=== PATIENT | female | born 1975 | race Caucasian/White ===

== ENCOUNTER → 2018-01-22 08:19 | Outpatient (CLI) | payer OTHER, SELFPAY ==
[2018-01-22 12:11] LABS: Absolute Lymphocyte Count 0.75 X10^3/ul (0.83-4.51); Absolute Neutrophil Count 1.2 X10^3/uL (2.0-7.7); Basophil# 0.01 X10^3/uL; Basophil% 0.5 % (0-1); Eosinophil# 0.04 X10^3/uL; Eosinophils% 1.8 % (0-5); Hematocrit 30.9 % (37-47); Hemoglobin 8.9 g/dl (12.0-15.0); Immature Platelet Fraction 5.5 % (1.0-7.9); Lymphocyte # 0.75 X10^3/ul (4.0); Lymphocyte % 34.1 % (19-41); Mean Corp Hgb Conc 28.8 g/gl (32-36); Mean Corpuscular Hgb 23.3 pg (27.0-32.0); Mean Corpuscular Volume 80.9 fL (81-99); Mean Platelet Vol. 10.6 fl (6.2-12.0); Monocyte# 0.21 X10^3/uL; Monocyte% 9.5 % (0-10); Neutrophil # 1.19 X10^3/uL (2.7-7.7); Neutrophil % 54.1 % (47-70); Platelet Count 111 K/mm3 (150-450); RBC Distribution Width CV 16.3 % (11.6-14.6); RBC Distribution Width SD 48.4 fl (35.1-43.9); RET-HE 20.5 pg (30-35); Red Blood Count 3.82 M/mm3 (4.2-5.4); Reticulocyte Count 0.88 % (0.5-1.5); White Blood Count 2.2 K/mm3 (4.4-11.0)
[2018-01-22 12:13] LABS: Differential Indicated SCAN CRITERIA MET; POSITIVE COUNT NO; POSITIVE DIFFERENTIAL NO; POSITIVE MORPHOLOGY YES
[2018-01-22 12:33] LABS: ALB/GLOB Ratio 1.1 RATIO (0.9-2.4); AST(SGOT) 32 U/L (15-37); Alanine Aminotransfer ALT/SGPT 44 U/L (13-56); Albumin, Serum 3.7 g/dL (3.2-5.0); Alkaline Phosphatase 64 U/L (45-117); Anion Gap 9 (5-15); BUN 21 mg/dL (7-18); BUN/Creat Ratio 20.8 RATIO (10-20); Calcium,Total 8.6 mg/dL (8.5-10.1); Chloride 108 mmol/L (98-107); Cholesterol 92 mg/dL (200); Creatinine, Serum 1.01 mg/dL (0.55-1.02); EST Glomerular Filtration Rate 63 mL/min (>60); Est Glom Filt Rate - Afr Amer 77 mL/min (>60); Ferritin 2 ng/mL (8-252); Globulin 3.4 g/dL (2.2-4.2); Glucose 92 mg/dL (74-106); High Density Lipoprotein 61 mg/dL; Potassium 4.1 mmol/L (3.5-5.1); Protein, Total 7.1 g/dL (6.4-8.2); Sodium Level 142 mmol/L (136-145); Triglycerides 29 mg/dL; Very Low Density Lipoprotein 6 mg/dL (5-40)
[2018-01-22 12:53] LABS: Red Cell Morphology NORM C+C NORMAL (NORM C&C)
== END ==
PROVIDERS: Family Provider Family Medicine; PCP Family Medicine; Visit Provider Family Medicine
DX: Z00.00 Encounter for general adult medical examination without abnormal findings (principal); D64.9 Anemia, unspecified
CPT/HCPCS: 36415; 80053; 80061; 82728; 85025; 85045

== ENCOUNTER → 2018-02-05 15:01 | Outpatient (CLI) | payer OTHER, SELFPAY ==
[2018-02-07 20:07] LABS: Endomysial Antibody IgA Negative (Negative)
[2018-02-08 13:59] LABS: Immunoglobulin A 114 mg/dL (87-352); t-Transglutaminase IgA <2 U/mL (0-3)
== END ==
PROVIDERS: Family Provider Family Medicine; PCP Family Medicine; Visit Provider Family Medicine
DX: D64.9 Anemia, unspecified (principal)
CPT/HCPCS: 36415; 82784; 83516; 86255

== ENCOUNTER → 2018-04-01 08:39 | Outpatient (CLI) | payer OTHER, SELFPAY ==
[2018-04-01 12:06] LABS: Absolute Lymphocyte Count 1.14 X10^3/ul (0.83-4.51); Absolute Neutrophil Count 1.6 X10^3/uL (2.0-7.7); Basophil# 0.01 X10^3/uL; Basophil% 0.3 % (0-1); Eosinophil# 0.04 X10^3/uL; Eosinophils% 1.3 % (0-5); Hematocrit 34.2 % (37-47); Hemoglobin 10.1 g/dl (12.0-15.0); Lymphocyte # 1.14 X10^3/ul (4.0); Lymphocyte % 36.5 % (19-41); Mean Corp Hgb Conc 29.5 g/gl (32-36); Mean Corpuscular Hgb 24.8 pg (27.0-32.0); Mean Corpuscular Volume 83.8 fL (81-99); Mean Platelet Vol. 10.8 fl (6.2-12.0); Monocyte# 0.29 X10^3/uL; Monocyte% 9.3 % (0-10); Neutrophil # 1.64 X10^3/uL (2.7-7.7); Neutrophil % 52.6 % (47-70); Platelet Count 96 K/mm3 (150-450); RBC Distribution Width CV 17.9 % (11.6-14.6); RBC Distribution Width SD 55.4 fl (35.1-43.9); Red Blood Count 4.08 M/mm3 (4.2-5.4); White Blood Count 3.1 K/mm3 (4.4-11.0)
[2018-04-01 12:07] LABS: Differential Indicated SCAN CRITERIA MET; POSITIVE COUNT NO; POSITIVE DIFFERENTIAL NO; POSITIVE MORPHOLOGY YES
[2018-04-01 12:13] LABS: Ferritin 3 ng/mL (8-252)
== END ==
PROVIDERS: Family Provider Family Medicine; PCP Family Medicine; Visit Provider Family Medicine
DX: D64.9 Anemia, unspecified (principal); D69.3 Immune thrombocytopenic purpura
CPT/HCPCS: 36415; 82728; 85025

== ENCOUNTER → 2019-01-21 | Outpatient (CLI) | payer OTHER, SELFPAY ==
[2019-01-21 12:49] LABS: Anion Gap 8 (5-15); BUN 17 mg/dL (7-18); BUN/Creat Ratio 20.5 RATIO (10-20); Calcium,Total 8.6 mg/dL (8.5-10.1); Chloride 110 mmol/L (98-107); Cholesterol 91 mg/dL (200); Creatinine, Serum 0.83 mg/dL (0.55-1.02); EST Glomerular Filtration Rate 79 mL/min (>60); Est Glom Filt Rate - Afr Amer 96 mL/min (>60); Glucose 84 mg/dL (74-106); High Density Lipoprotein 63 mg/dL; Potassium 4.4 mmol/L (3.5-5.1); Sodium Level 143 mmol/L (136-145); Triglycerides 39 mg/dL; Very Low Density Lipoprotein 8 mg/dL (5-40)
== END | disposition home or self-care (01) ==
LOC: BFHLAB 08:34
PROVIDERS: Family Provider Family Medicine; PCP Family Medicine; Visit Provider Family Medicine
DX: Z00.00 Encounter for general adult medical examination without abnormal findings (principal)
CPT/HCPCS: 36415; 80048; 80061

== ENCOUNTER → 2019-05-01 11:51 | Outpatient (CLI) | payer OTHER, SELFPAY ==
[2019-05-01 11:54] LABS: Bacteria 0 SEEN /hpf (None Seen); Mucous, Urine 0 SEEN /hpf (<or=2+)
[2019-05-01 16:15] LABS: Color, Urine Yellow (Yellow); Glucose, Dipstick Normal (Normal); Ketone-Dipstick Negative (Negative); Leukocyte Esterase-Dipstick 100 /ul (Negative); Nitrite-Dipstick Negative (Negative); Occult Blood-Urine 50 /ul (Negative); Protein-Dipstick Negative (Negative); Urine Bilirubin Dipstick Negative (Negative); Urine Clarity Clear (Clear); Urine Urobilinogen Normal (Normal); Urine pH 6.5 (5.0 - 8.0)
[2019-05-01 17:14] LABS: Red Blood Cells-Urine 0-5 SEEN /hpf (0-5); Squamous Epithelial Cells - UA 0-5 SEEN /hpf (5-10); White Blood Cells 5-10 SEEN /hpf (0-5)
== END ==
PROVIDERS: Family Provider Family Medicine; PCP Family Medicine; Visit Provider Family Medicine
DX: R30.0 Dysuria (principal)
CPT/HCPCS: 81001; 87077; 87086; 87088; 87186

== ENCOUNTER 2021-07-31 10:01 | Outpatient (CLI) | payer OTHER, SELFPAY ==
[2021-07-31 15:22] LABS: Absolute Lymphocyte Count 0.89 X10^3/uL (0.83-4.51); Absolute Neutrophil Count 1.8 X10^3/uL (2.0-7.7); Basophil# 0.02 X10^3/uL; Basophil% 0.6 % (0-1); Eosinophil# 0.04 X10^3/uL; Eosinophils% 1.2 % (0-5); Hematocrit 35.8 % (37-47); Hemoglobin 11.3 g/dL (12.0-15.0); Lymphocyte # 0.89 X10^3/ul (0.83-4.51); Lymphocyte % 27.6 % (19-41); Mean Corp Hgb Conc 31.6 g/dL (32-36); Mean Corpuscular Hgb 28.9 pg (27.0-32.0); Mean Corpuscular Volume 91.6 fL (81-99); Mean Platelet Vol. 12.1 fl (6.2-12.0); Monocyte# 0.42 X10^3/uL; NRBC Flagged by Analyzer 0 % (0-5); Neutrophil # 1.84 X10^3/uL (2.7-7.7); Neutrophil % 57.3 % (47-70); Platelet Count 143 K/mm3 (150-450); RBC Distribution Width CV 12.8 % (11.6-14.6); RBC Distribution Width SD 41.8 fl (35.1-43.9); Red Blood Count 3.91 M/mm3 (4.2-5.4); White Blood Count 3.2 K/mm3 (4.4-11.0)
[2021-07-31 15:39] LABS: Vitamin D,25 Hydroxy 35.3 ng/mL
[2021-07-31 15:50] LABS: ALB/GLOB Ratio 1.1 RATIO (0.9-2.4); AST(SGOT) 16 U/L (15-37); Alanine Aminotransfer ALT/SGPT 16 U/L (13-56); Albumin, Serum 3.8 g/dL (3.2-5.0); Alkaline Phosphatase 53 U/L (45-117); Anion Gap 5 (5-15); BUN 20 mg/dL (7-18); BUN/Creat Ratio 22.7 RATIO (10-20); Calcium,Total 9.3 mg/dL (8.5-10.1); Chloride 108 mmol/L (98-107); Creatinine, Serum 0.88 mg/dL (0.55-1.02); EST Glomerular Filtration Rate 73 mL/min (>60); Est Glom Filt Rate - Afr Amer 88 mL/min (>60); Ferritin 5 ng/mL (8-252); Globulin 3.6 g/dL (2.2-4.2); Glucose 91 mg/dL (74-106); Iron 49 ug/dL (50-170); Iron Binding Capacity,Total 378 ug/dL (250-450); Potassium 4.3 mmol/L (3.5-5.1); Protein, Total 7.4 g/dL (6.4-8.2); Sodium Level 138 mmol/L (136-145); T4 Free Direct 0.91 ng/dL (0.76-1.46); Thyroid Stim Hormone (TSH) 0.38 uIU/mL (0.358-3.74)
== END 2021-07-31 23:59 | disposition home or self-care (01) ==
LOC: MFPLAB 10:04
PROVIDERS: PCP Family Medicine; Visit Provider Family Medicine
DX: D50.9 Iron deficiency anemia, unspecified (principal); E55.9 Vitamin D deficiency, unspecified
CPT/HCPCS: 36415; 80053; 82306; 82728; 83540; 83550; 84439; 84443; 85025

== ENCOUNTER → 2022-02-07 | Outpatient (CLI) | payer OTHER, SELFPAY | END | disposition home or self-care (01) | LOC: LABSPEC 16:01 | PROVIDERS: PCP Family Medicine; Referring Provider Family Medicine; Visit Provider Nurse Practitioner Family | DX: N39.0 Urinary tract infection, site not specified (principal) | CPT/HCPCS: 87086; 87088 ==

== ENCOUNTER → 2022-07-26 | Outpatient (CLI) | payer OTHER, SELFPAY | END | disposition home or self-care (01) | PROVIDERS: PCP Family Medicine; Visit Provider Nurse Practitioner Family | DX: N39.0 Urinary tract infection, site not specified (principal) | CPT/HCPCS: 87077; 87086; 87088; 87186 ==

== ENCOUNTER → 2022-10-04 | Outpatient (CLI) | payer OTHER, SELFPAY ==
[2022-10-04 18:09] LABS: Absolute Lymphocyte Count 0.57 X10^3/uL (0.83-4.51); Absolute Neutrophil Count 5.9 X10^3/uL (2.0-7.7); Basophil# 0.01 X10^3/uL; Basophil% 0.1 % (0-1); Hematocrit 32.9 % (37-47); Hemoglobin 10.3 g/dL (12.0-15.0); Lymphocyte # 0.57 X10^3/ul (0.83-4.51); Lymphocyte % 7.7 % (19-41); Mean Corp Hgb Conc 31.3 g/dL (32-36); Mean Corpuscular Hgb 30.1 pg (27.0-32.0); Mean Corpuscular Volume 96.2 fL (81-99); Mean Platelet Vol. 12.3 fl (6.2-12.0); Monocyte# 0.93 X10^3/uL; Monocyte% 12.5 % (0-10); NRBC Flagged by Analyzer 0 % (0-5); Neutrophil # 5.88 X10^3/uL (2.7-7.7); POSITIVE DIFFERENTIAL YES; Platelet Count 130 K/mm3 (150-450); RBC Distribution Width CV 12.5 % (11.6-14.6); Red Blood Count 3.42 M/mm3 (4.2-5.4); White Blood Count 7.4 K/mm3 (4.4-11.0)
[2022-10-04 18:59] LABS: AST(SGOT) 19 U/L (15-37); Alanine Aminotransfer ALT/SGPT 18 U/L (13-56); Albumin, Serum 3.3 g/dL (3.2-5.0); Alkaline Phosphatase 52 U/L (45-117); Anion Gap 7 (5-15); BUN 16 mg/dL (7-18); Calcium,Total 8.4 mg/dL (8.5-10.1); Chloride 103 mmol/L (98-107); Creatinine, Serum 0.84 mg/dL (0.55-1.02); EST Glomerular Filtration Rate 76 mL/min (>60); Est Glom Filt Rate - Afr Amer 92 mL/min (>60); Globulin 3.2 g/dL (2.2-4.2); Glucose 133 mg/dL (74-106); Potassium 4.6 mmol/L (3.5-5.1); Protein, Total 6.5 g/dL (6.4-8.2); Sodium Level 134 mmol/L (136-145)
[2022-10-04 19:02] LABS: Differential Indicated SCAN CRITERIA MET
[2022-10-04 19:28] LABS: Anisocytosis RARE; Macrocytosis RARE; Platelet Estimate SLT DEC (ADEQ); Red Cell Morphology N CHROM NORMAL (NORM C&C)
== END | disposition home or self-care (01) ==
PROVIDERS: PCP Family Medicine; Visit Provider Nurse Practitioner Family
DX: R30.0 Dysuria (principal); R50.9 Fever, unspecified
CPT/HCPCS: 36415; 80053; 85025; 87086; 87088; 87186

== ENCOUNTER → 2022-10-17 | Outpatient (CLI) | payer OTHER, SELFPAY ==
--- NOTE | 2022-10-17 15:58 | US_ITS ---
EXAM: US RETROPERITONEAL LIMITED, RENAL CLINICAL INDICATION: UTI TECHNIQUE: Limited grayscale and color Doppler sonographic evaluation of the retroperitoneum was performed. COMPARISON: Previous CT of 07/15/2015. FINDINGS: RIGHT KIDNEY: Right kidney remains small/atrophic; the right kidney measures 8.0 x 3.2 x 3.2 cm in diameter. There is mild diffuse right renal cortical thinning. 2.6 cm lobulated anechoic/ simple cyst noted at the upper pole of the right kidney. No right-sided hydronephrosis or solid renal mass. LEFT KIDNEY: Left kidney remains normal in size, measuring 10.5 x 4.7 x 5.7 cm in diameter. Normal renal cortical thickness. No hydronephrosis. No shadowing calculus. No focal lesion. No perinephric collection is demonstrated. URINARY BLADDER: Prevoid volume measures 79.7 cc. Bladder wall thickness is upper normal measuring 3 mm in thickness. Bilateral ureteral jets are noted. Postvoiding bladder volume measures 10 cc. No cellular debris is seen within the urinary bladder. US/Kidney and Bladder IMPRESSION: Chronic atrophy of the right kidney. Normal left kidney. Small postvoiding residual within the urinary bladder, measuring 10 cc. No hydronephrosis. Electronically Signed: Mk Slaughter MD at 5:26 EDT ,
== END | disposition home or self-care (01) ==
PROVIDERS: PCP Family Medicine; Referring Provider Urology; Visit Provider Urology
DX: N39.0 Urinary tract infection, site not specified (principal)
CPT/HCPCS: 76770

== ENCOUNTER 2022-11-15 10:57 | Day surgery (SDC) | payer OTHER, SELFPAY ==
[2022-11-09 13:31] LABS: Hematocrit 34.1 % (37-47); Hemoglobin 10.2 g/dL (12.0-15.0); Mean Corp Hgb Conc 29.9 g/dL (32-36); Mean Corpuscular Hgb 27.2 pg (27.0-32.0); Mean Corpuscular Volume 90.9 fL (81-99); Mean Platelet Vol. 11.6 fl (6.2-12.0); Platelet Count 171 K/mm3 (150-450); RBC Distribution Width CV 12.3 % (11.6-14.6); RBC Distribution Width SD 40.7 fl (35.1-43.9); Red Blood Count 3.75 M/mm3 (4.2-5.4); White Blood Count 3.2 K/mm3 (4.4-11.0)
--- NOTE | 2022-11-14 17:24 | HP.PCM_ITS ---
History and Physical Date of Admission: 11/15/22 Pre-Op History and Physical ? HPI: The patient is a 47 year old female presenting for pre-operative visit. She is scheduled for hysteroscopy, elisa endometrial ablation, for aub on 11/15/22. Procedure discussed along with risks, benefits and complications. Other alternatives discussed for management. Consent form signed? Yes. ? ? PAST MEDICAL HISTORY PAST MEDICAL HISTORY Diagnosis Date ? Anemia, unspecified 03/16/2011 ? Chronic cholecystitis with calculus 06/06/2015 ? Congenital abnormality ureter ? ? DOUBLE URETERS BOTH SIDES ? Double ureter ? ? Dysmenorrhea ? ? History of recurrent UTI (urinary tract infection) ? ? Ichthyosis ? ? of hands, dishydrosis ? ITP (idiopathic thrombocytopenic purpura) ? ? worse with ? Mastitis 01/20/2013 ? Other malaise and fatigue 2006 ? Resolved ? Pancytopenia (HCC) ? ? s/p bone marrow bx, Masci 2006 ? Snoring ? ? Thrombocytopenia, unspecified (HCC) ? ? Thrombocytopenia Immune mediated. ? Umbilical hernia without obstruction or gangrene 06/06/2015 ? Ventral hernia without obstruction or gangrene 06/06/2015 ? ? PAST SURGICAL HISTORY PAST SURGICAL HISTORY Procedure Laterality Date ? BONE MARROW BIOPSY NEEDLE (MM) ? 03/25/2007 ? negative ? BREAST BIOPSY Right 2000 ? RIGHT fibroadenoma ? DELIVERY ONLY ? 2003,2006,2007, 2009 ? , low cervical ? COLONOSCOPY FLX DX W/COLLJ SPEC WHEN PFRMD ? 05/14/2018 ? Colonoscopy ? DILATION & CURETTAGE DX&/THER NONOBSTETRIC ? 07/09/2006 ? Dilation & curettage ? EGD TRANSORAL BIOPSY SINGLE/MULTIPLE ? 07-14-15 ? ERCP DX COLLECTION SPECIMEN BRUSHING/WASHING ? 07/16/15 ? Cholangiopancreatography (ERCP)in pt [facility] ? ESOPHAGOGASTRODUODENOSCOPY TRANSORAL DIAGNOSTIC ? 05/14/2018 ? EGD ? KIDNEY SURGERY HX ? 1975 age 1 ? 1/2 kidney removed due to infection and dying tissue ? LAPS ABD PRTM&OMENTUM DX W/WO SPEC BR/WA SPX ? 07-15-15 ? LAPS SURG CHOLECYSTECTOMY W/CHOLANGIOGRAPHY ? 07-07-15 ? LIG/TRNSXJ FLP TUBE ABDL/VAG APPR UNI/BI ? 2010 ? Tubal ligation ? PAST SURGICAL HISTORY OF Right 1975 ? RIGHT KIDNEY 1/2 REMOVED ? PAST SURGICAL HISTORY OF Right 1974 ? ONE URETER OF DOUBLE URETER REMOVED RIGHT ? REPAIR FIRST ABDOMINAL WALL HERNIA ? 07-07-15 ? AND UMBILICAL HERNIA ? ? ? CURRENT MEDICATIONS Current Outpatient Medications Medication Sig Dispense Refill ? ascorbic acid (VITAMIN C ORAL) Take by mouth. ? ? ? miSOPROStol (CYTOTEC) 200 mcg tablet Take two tablets PO night before procedure and two tablets morning of procedure (Patient not taking: Reported on 03/19/2022) 4 tablet 0 ? BIOTIN ORAL Take 1 tablet by mouth once daily. (Patient not taking: Reported on 03/19/2022) ? ? ? cholecalciferol, vitamin D3, (VITAMIN D3 ORAL) Take 1 tablet by mouth once daily. (Patient not taking: Reported on 03/19/2022) ? ? ? No current facility-administered medications for this visit. ? ? ALLERGIES: Ancef [Cefazolin Sodium] ? PERSONAL HISTORY: SOCIAL HISTORY Social History ? Tobacco Use ? Smoking status: Never ? Smokeless tobacco: Never Vaping Use ? Vaping Use: Never used Substance Use Topics ? Alcohol use: No ? Drug use: No ? FAMILY HISTORY: FAMILY HISTORY FAMILY HISTORY Problem Relation Age of Onset ? None Mother ? ? Hypertension Father ? ? Diabetes Father ? ? other (ITP) Father ? ? Cancer Paternal Grandmother ? ? LUNG (SMOKER) ? Heart Paternal Grandfather ? ? [place] ? other (Other) Paternal Grandfather ? ? no breast or ovarian cancer ? ? REVIEW OF SYMPTOMS: negative except as noted above PHYSICAL EXAMINATION: ? VITALS: Blood pressure 86/52, weight 117 lb (53.1 kg), last menstrual period 09/23/2022. ? GENERAL: The patient is well nourished, well hydrated in no acute distress. , The patient is oriented to time, place, and person. NECK: full range of motion LUNGS: Clear to auscultation bilaterally. no wheezes, rhonchi or rales HEART: Regular rate and rhythm, Normal heart sounds, and No murmurs or gallops ? IMPRESSION: 47yo with AUB ? PLAN: Hysteroscopy, Elisa Endometrial Ablation ? Pt has been counseled on risks/benefits and alternatives of surgery including but not limited to anesthesia, bleeding, infection, uterine perforation with subsequent injury to pelvic structures including bowel, bladder, ureters and vessels. Pt wishes to proceed with surgery at this time. ? Pre and post op instructions reviewed. Discussed possible failure of EM ablation. ? I have reviewed and updated past medical and surgical history, medications and allergies Cathy Ortega MD
[2022-11-15 11:13] VITALS: BP 117/64; PULSE 65; RESP 16; TEMP 36.4; O2SAT 100; BMI 19.5
[2022-11-15 11:26] LABS: Internal QC Validated? YES +Cl - CLEAR BKGD; Pregnancy, Urine Negative Negative
[2022-11-15] MEDS: Lactated Ringers 1,000 ML 15 ML IV (11:27)
--- NOTE | 2022-11-15 13:36 | DCINST_ITS ---
Discharge Instructions Procedure D&C Diet Discharge Diet: No restrictions Activity May resume sexual activity in: 1 week Dressing / Incision Call your doctor if you observe: Fever of 101 or Higher, Inability to urinate, Using more than 1 pad per hour and Uncontrolled pain Follow Up Care Please Follow Up With: Cathy Jerez MD When: 1-2 weeks post OP if you need an appointment please call [phone] Test Results: Test results from this visit will be discussed in further detail at your follow- up appointment, if applicable. Discharge Plan Admission Attending Provider: Cathy Jerez Primary Care Provider: Amos Fletcher Discharge Orders/Prescriptions Prescriptions: No Action ascorbate calcium (vitamin C) 500 mg tablet 500 mg PO DAILY Referrals / Follow Up: Amos Fletcher MD [Primary Care Provider] - Disposition Disposition (needs filled in before D/C Order can be placed): Home, Self Care
--- NOTE | 2022-11-15 13:37 | PCM.OPRPT ---
Report of Operation Date of Procedure: 11/15/22 Pre-Operative Diagnosis: AUB Post-Operative Diagnosis: Same Surgery/Procedure Performed:: Hysteroscopy, Failed Elisa Ablation- Hydrothermal Endometrial ablation Description of Surgical Findings:: Uterus sounded to 6cm, endocervical canal 2cm. unable to to perform elisa due to size of cavity- Spoke to family- HTA agreed upon. HTA performed without complication. Surgeon: Cathy Jerez education site manager: None Type of Anesthesia: MAC Specimen's removed: none Estimated Blood Loss (mL): 5cc Fluids Replaced: 800 Description of Procedure: After informed consent was obtained patient taken to the operating room she is placed in supine position she is given anesthesia simply self insert she is prepped draped normal sterile fashion. Bladder was drained prior to the start of the procedure. At this time the weighted speculum was placed the posterior fornix of the vagina then a single-tooth tenaculum was used to grasp the anterior lip of the cervix. At this time the uterus was sounded to [id number] the endocervical canal sounded to 2 cm. Next cervix was dilated in incremental fashion. Once adequate dilatation was achieved the hysteroscope was inserted using normal saline as distention medium. On hysteroscopy there were no gross abnormalities. Both tubal ostia were visualized. At this time the Elisa device was opened. The Elisa was set at 4cm. Unable to open device completely due to cavity size- at this time family was called and discussion regarding HTA- decision to proceed with HTA. HTA albation was performed for 10min, no interruptions during the cycle, good cervical seal with no leaks and no fluid loss. Once complete device removed. tenacluum removed. Good hemostasis was appreciated. Weighted speculum was removed. Vaginal sweep was performed is negative. There were no complications. Anticipated normal postoperative course for this patient. Instrument and lap count were correct ?2. Procedure Start Time: 12:50 Procedure Stop Time: 13:35 Complications none Admit VTE Documentation VTE Present on Admission: Yes VTE Mechan Device Prophylaxis: SCD's VTE Pharm Prophylaxis ordered?: No Reason prophylaxis not ordered:: Procedure Not Indicated
[2022-11-15 13:50] VITALS: BP 117/64; BP 99/67; PULSE 88; RESP 18; TEMP 36.2
[2022-11-15 13:55] VITALS: BP 100/52; BP 117/64; PULSE 62; RESP 18; O2SAT 100
[2022-11-15 14:00] VITALS: BP 111/72; BP 117/64; PULSE 64; RESP 18; O2SAT 100
[2022-11-15 14:07] VITALS: BP 100/7; BP 117/64; PULSE 60; RESP 18; TEMP 36.6; O2SAT 100
[2022-11-15] MEDS: Acetaminophen 500 MG Tablet 1000 MG PO (14:27)
[2022-11-15 15:17] VITALS: BP 114/48; BP 117/64; PULSE 46; RESP 16; TEMP 37.1; O2SAT 100
== END 2022-11-15 15:30 | disposition home or self-care (01) ==
LOC: SDC 10:57 → AC 10:58
PROVIDERS: PCP Family Medicine; Referring Provider Obstetrics & Gynecology; Visit Provider Obstetrics & Gynecology
PROC: 0U5B8ZZ Destruction of Endometrium, Via Natural or Artificial Opening Endoscopic (ICD-10-PCS; CPT 58558; principal; 2022-11-15 12:20)
DX: N93.9 Abnormal uterine and vaginal bleeding, unspecified (principal)
CPT/HCPCS: 58563; 00952; 36415; 81025; 85027; J7120; J2405

== ENCOUNTER 2023-04-30 08:28 | Emergency (ER) | payer OTHER, SELFPAY ==
[2023-04-30 08:29] VITALS: BP 103/44; PULSE 76; RESP 14; TEMP 36.6; O2SAT 100
--- NOTE | 2023-04-30 08:52 | CT_ITS ---
STUDY: CTA HEAD AND NECK WITH CONTRAST REASON FOR EXAM: Female, 48 years old. 2 day history of upper neck pain. Headaches. RADIATION DOSAGE (If Supplied By Facility): CTDIvol = ( 22.04 ) mGy, DLP = ( 1934.62 ) mGycm TECHNIQUE: CT angiography was performed with a multi-detector CT scanner. Data acquisition was obtained from the skull base through the vertex following intravenous administration of IV 100mL Isovue-370. MIP images were reconstructed from the axial data set. Post-processing of the angiographic images was performed, with multiplanar reformation and 3D reconstruction. Individualized dose optimization techniques were used for this CT. COMPARISON: No relevant priors. FINDINGS: Normal bilateral petrous carotid arteries. Normal right cavernous carotid artery with a normal supraclinoid bifurcation. Normal left cavernous carotid artery with a normal supraclinoid bifurcation. Normal right A1 segments of the anterior cerebral artery. Normal left A1 segments of the anterior cerebral artery. Normal intact anterior communicating artery (ACOM). Normal bilateral A2 segments of the anterior cerebral arteries. Normal right M1 and M2 segments of the middle cerebral arteries, with a normal M1 bifurcation. Normal left M1 and M2 segments of the middle cerebral arteries, with a normal M1 bifurcation. Normal right posterior communicating artery (PCOM). Normal left posterior communicating artery (PCOM). Normal bilateral vertebral arteries. Normal basilar artery with a normal basilar bifurcation. The visualized bilateral superior cerebellar (SCA) arteries are normal. Normal bilateral P1, P2 and visualized P3 segments of the posterior cerebral arteries. There is no demonstrated aneurysm of the [place]. There is no demonstrated abnormality of the visualized brain. AORTIC ARCH: Normal visualized aortic arch. Normal origins of the brachiocephalic, left common carotid, and left subclavian arteries. RIGHT CAROTID ARTERIES: Normal right common carotid artery (CCA). Normal right common carotid bulb. Normal origin of the right internal carotid (ICA) artery without a hemodynamically significant stenosis. Normal visualized cervical portion of the right internal carotid artery. Normal origin of the right external carotid artery (ECA). LEFT CAROTID ARTERIES: Normal left common carotid artery (CCA). Normal left common carotid bulb. Normal origin of the left internal carotid (ICA) artery without a hemodynamically significant stenosis. Normal visualized cervical portion of the left internal carotid artery. Normal origin of the left external carotid artery (ECA). VERTEBRAL ARTERIES: Normal bilateral vertebral arteries. There is a 5.2 mm lipoma in the anterior aspect of the right lobe of the thyroid. Heterogeneous appearance of both lobes of the thyroid gland. There is a 6.6 mm x 7.4 mm sclerotic nodule in the superior aspect of the T3 vertebrae. This may represent a bone island. CT/CTA Head AND Neck W/ Contrast IMPRESSION: Normal CTA Head and neck with contrast. Electronically Signed: Mal Reynaga MD at 10:48 EST ,
--- NOTE | 2023-04-30 09:01 | EDS_ITS ---
HPI History of Present Illness Chief Complaint: Other, Pain/Inj Informant: patient Narrative Narrative: Patient presents with severe pain at the base of her head. It hurts to move her head/neck. It also hurts worse to swallow. She denies any neurologic symptoms in her periphery or trouble walking except for pain when holding her head up. She states this started 2 evenings ago. She states she was sitting against a fireplace watching a movie so she was sitting there for an extended period of time, against a pillow at her low back, and noticed at 1 point her neck started hurting because of the way she was holding her head while in this position, and so she readjusted. Several hours later, she started having this pain that she complains of now, but it was not this severe, and it has gradually worsened. She denies any fevers or chills or systemic symptoms. She denies any direct trauma. She denies any changes in her hearing or vision. She also adds that she has been having headaches intermittently for the last year. She did not think anything of it because they were not severe or sudden onset or with any focal neurologic symptoms. She would never wake up with the headaches, they would be in the back of her head like this is. 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 Other than the pain at the base of her head posteriorly, she does not have any other headache right now. She feels a little nauseated because of the pain, but denies any nausea/vomiting been associated with any of this before now. [facility] Medical History Anemia Bile duct leak Cardiology follow-up encounter Excessive bleeding Hiatal hernia [facility] (iron deficiency anemia) ITP (idiopathic thrombocytopenic purpura) Low iron Menorrhagia Non-smoker Shortness of breath on exertion Vitamin D deficiency Wears contact lenses Wears glasses Home Medications ascorbate calcium (vitamin C) 500 mg tablet 500 mg PO DAILY 12/28/21 [History Last Taken Unknown] orphenadrine citrate 100 mg tablet,extended release 100 mg PO Q12H PRN muscle pain #20 tabs 04/30/23 [Rx Last Taken Unknown] oxycodone-acetaminophen 5 mg-325 mg tablet 1 tab PO Q6H PRN PRN Pain 3 days #12 TABLETS 04/30/23 [Rx Last Taken Unknown] Allergy/AdvReac Type Severity Reaction Status Date / Time cefazolin sodium [From [facility]] Allergy THROAT Verified 04/30/23 08:29 SWELLS UP Family History Mother Heart disease afib-rfa MVP Surgical History History of bone marrow biopsy (2006) History of History of cholecystectomy (2015) History of colonoscopy (04/2018) History of esophagogastroduodenoscopy (EGD) (04/2018) History of partial nephrectomy (1974) History of wisdom tooth extraction Social History Smoking Status: Never smoker ROS ROS ED Constitutional Constitutional ED: Denies chills or fever(s) Eyes Eyes: Denies blurry vision, change in vision or diplopia ENT ENT ED: Denies ear pain, rhinorrhea or sore throat Cardiovascular Cardiovascular: Denies chest pain or palpitations Respiratory/Chest Respiratory/Chest: Denies cough or dyspnea Gastrointestinal Gastrointestinal: Reports nausea; Denies abdominal pain, diarrhea or vomiting Genitourinary Genitourinary ED: Denies dysuria or hematuria Musculoskeletal Musculoskeletal: Reports neck pain; Denies arthralgias or back pain Integumentary Denies abscess or rash Neurologic Neurologic: Reports headache(s); Denies paresthesias or weakness Psychiatric Psychiatric: Denies suicidal ideation or suicidal thoughts EXAM Physical Exam Const Vital Signs: 04/30/23 08:29 04/30/23 09:39 04/30/23 09:30 Temperature 98 F Temperature Source Temporal Pulse Rate 76 58 L 59 L Respiratory Rate 14 14 14 Blood Pressure 103/44 L 102/49 L 81/45 L Blood Pressure Mean 63 66 57 Pulse Ox 100 99 99 Oxygen Delivery Method Room Air Room Air Positive well nourished and well developed General Appearance ED: well developed and NAD HEENT Reports moist mucous membranes HEENT Narrative: Patient resistant to moving her head at all due to pain. She is holding in straight neutral position and appears uncomfortable but in no distress normocephalic and atraumatic Eyes PERRL and EOMs intact bilaterally Neck full ROM, no lymphadenopathy and supple Neck Narrative: While holding still, no point tenderness throughout the neck, patient states it hurts severely but I am not making it worse by pressing, same with the base of her skull. There are no lesions, hematomas, rashes. Patient states that hurts on the inside. No pain or tenderness over distribution of the carotids or sternocleidomastoids. Resp normal respiratory effort and clear to auscultation bilaterally Cardio regular rate, regular rhythm and no murmurs Rate: Negative for tachycardic GI non-tender and non-distended Auscultation: normoactive bowel sounds Palpation: soft Back/Spine no CVA tenderness General Back: other FROM Extremity normal to inspection General Extremety ED: Negative for edema, pulses abnormal or tenderness General Extremity: Negative for edema or pulses abnormal Neuro oriented x3, CN's II-XII intact bilaterally and no sensory deficits noted Sensorium / Orientation: awake and alert Motor Exam: strength 5/5 throughout Psych mental status grossly normal Mood & Affect: anxious Skin no rashes or lesions noted and no wounds MDM MDM MDM Narrative Medical decision making narrative: Patient states she has ITP, but the last time her platelets were checked they had been doing better and were about 118,000. And considering hemorrhagic etiologies, brain masses, deep space neck soft tissue mass/abscess, labs to check blood counts and CT of the head and neck were indicated and obtained. Simple muscular neck strain is in the differential diagnosis and can yield severe pain especially in a delayed fashion like described and could be worst on days 2 and 3 like this, which we discussed as a diagnosis of exclusion. She does not have any neurologic symptoms to suggest that an emergent MRI of the spine is indicated. We discussed medications including a dose of Toradol which should be safe if her platelets are up, as well as Norflex, she wanted to avoid narcotics and nausea medicine at this time. Prior to getting the medications, the patient started feeling really lightheaded and poorly. Her pulse dropped into the 50s, and she became lightheaded, and her blood pressure dropped. The nurse had given the medications, they did not make her feel better nor necessarily responsible for making her worse. We bolused her with the fluid that was already ordered, and obtained an EKG and I added a troponin onto her regular lab work, her pressure came up with the fluids, EKG shows sinus rhythm, I suspect she has bradycardia and because of the pain, however since we had not obtained imaging yet I also obtain CT angiography of the chest in order to rule out dissection causing a very atypical presentation in addition to the other imaging which was changed to focus on vascular structures of the head and neck in addition to the plain CT of the head. I reviewed the imaging and the report, all negative for anything acute including aortic dissection, I agree with the reports. On reevaluation patient is feeling much better. I believe she probably had a mild vagal reaction due to the pain. Did not seem that the timing coincided with medication administration. All in all here, I think she has a myofascial cervical strain of her upper cervical musculature. We considered meningitis in the differential, I offered a lumbar puncture, she declines. I think this is less likely the diagnosis since she really is not having headache, fever, mental status changes. Any of that I would recommend returning. However her history and exam is consistent with a strain at this time, pain of which can certainly be severe. Prescriptions for Norflex and Percocet given after we discussed pros and cons of various analgesic prescriptions, in addition to Tylenol and ibuprofen and heat or ice as needed along with muscle rub which she has as well. Lab Data Attestation: I reviewed the patient's lab results. Labs: Laboratory Results - last 24 hr 04/30/23 09:13 WBC 5.4 RBC 3.64 L Hgb 11.1 L Hct 34.0 L MCV 93.4 MCH 30.5 MCHC 32.6 RDW Std Deviation 42.0 RDW Coeff of [place] 12.1 Plt Count 142 L MPV 10.7 Immature Gran % (Auto) 0.400 Neut % (Auto) 78.9 H Lymph % (Auto) 12.5 L [place] % (Auto) 7.6 Eos % (Auto) 0.4 Baso % (Auto) 0.2 Absolute Neuts (auto) 4.2 Absolute Lymphs (auto) 0.67 L Nucleated RBC % 0 Sodium 137 Potassium 3.7 Chloride 109 H Carbon Dioxide 24.0 Anion Gap 4 L BUN 16 Creatinine 0.72 Est GFR (MDRD) Af Amer 111 Est GFR (MDRD) Non-Af 92 BUN/Creatinine Ratio 22.3 H Glucose 167 H Calcium 8.8 Troponin I High Sens 4 Radiography Diagnostic Testing: Clinical Impression(s) from Imaging Studies Head/Neck CTA 04/30/23 08:52 IMPRESSION: Normal CTA Head and neck with contrast. Electronically Signed: Mal Renyaga MD at 10:48 EST , Chest CTA 04/30/23 09:40 IMPRESSION: Normal CTA chest examination, without a demonstrated pulmonary embolism or arterial dissection. Electronically Signed: Mal Reynaga MD at 10:50 EST , Rhythm Strip Rhythm Strip: Sinus Rhythm Rate: 58 Ectopy: None EKG Initial EKG: Attestation: I personally reviewed and interpreted this EKG as follows: Interpretation: Sinus Rhythm and No Acute Injury Pattern Comments: nml EKG Discharge Plan Triage Chief Complaint: Other, Pain/Inj ED Provider: Shahbaz Adams Dx/Rx/DC Orders Clinical Impression: Acute cervical myofascial strain Instructions: ED Neck Sprain or Strain Prescriptions: New orphenadrine citrate 100 mg tablet extended release 100 mg PO Q12H PRN (Reason: muscle pain) Qty: 20 0RF oxycodone-acetaminophen [oxycodone-acetaminophen] 5-325 mg tablet 1 tab PO Q6H PRN PRN (Reason: Pain) 3 Days Qty: 12 0RF No Action ascorbate calcium (vitamin C) 500 mg tablet 500 mg PO DAILY Primary Care Provider: Amos Fletcher Referrals: Amos Fletcher MD [Primary Care Provider] - 3-5 Days if not improving Activity Restrictions/Additional Instructions: Tylenol 650-1000 mg every 4-6 hours as needed for pain Ibuprofen 400-600 mg every 6-8 hours as needed for pain May add the Norflex and Percocet to this as needed, just watch your acetaminophen intake so that you do not take more than 4000 mg in a 24-hour period. If you need to take 1325 mg of acetaminophen at 1 time that is okay as long as you do not delay the next major dose of acetaminophen. Disposition Disposition: Home, Self Care
[2023-04-30] MEDS: Ketorolac 30 MG/ML Syringe IV (09:16)
[2023-04-30] MEDS: 0.9% Normal Saline (1000mL) 1,000 ML 999 ML IV (09:19)
[2023-04-30] MEDS: Orphenadrine 60 MG/2 ML Ampul IV (09:21)
[2023-04-30 09:29] LABS: Absolute Lymphocyte Count 0.67 X10^3/uL (0.83-4.51); Absolute Neutrophil Count 4.2 X10^3/uL (2.0-7.7); Basophil# 0.01 X10^3/uL; Basophil% 0.2 % (0-1); Eosinophil# 0.02 X10^3/uL; Eosinophils% 0.4 % (0-5); Hemoglobin 11.1 g/dL (12.0-15.0); Lymphocyte # 0.67 X10^3/ul (0.83-4.51); Lymphocyte % 12.5 % (19-41); Mean Corp Hgb Conc 32.6 g/dL (32-36); Mean Corpuscular Hgb 30.5 pg (27.0-32.0); Mean Corpuscular Volume 93.4 fL (81-99); Mean Platelet Vol. 10.7 fl (6.2-12.0); Monocyte# 0.41 X10^3/uL; Monocyte% 7.6 % (0-10); NRBC Flagged by Analyzer 0 % (0-5); Neutrophil # 4.23 X10^3/uL (2.7-7.7); Neutrophil % 78.9 % (47-70); Platelet Count 142 K/mm3 (150-450); RBC Distribution Width CV 12.1 % (11.6-14.6); Red Blood Count 3.64 M/mm3 (4.2-5.4); White Blood Count 5.4 K/mm3 (4.4-11.0)
[2023-04-30 09:30] VITALS: BP 81/45; PULSE 59; RESP 14; O2SAT 99
[2023-04-30 09:39] VITALS: BP 102/49; PULSE 58; RESP 14; O2SAT 99
--- NOTE | 2023-04-30 09:40 | CT_ITS ---
STUDY: CTA CHEST REASON FOR EXAM: Female, 48 years old. Neck pain, hypotension RADIATION DOSAGE (If Supplied By Facility): CTDIvol = ( 22.04 ) mGy, DLP = ( 1934.62 ) mGycm TECHNIQUE: The examination was performed with the intravenous administration of IV 100mL Isovue-370. Post-processing of the angiographic images was performed, with multiplanar reformation and 3D reconstruction. Individualized dose optimization techniques were used for this CT. COMPARISON: None. FINDINGS: Normal enhancement of the main pulmonary artery and right and left pulmonary arteries. Normal enhancement of the bilateral peripheral pulmonary arteries. There is no demonstrated pulmonary embolism. Normal thoracic aorta and visualized great vessels. There is no demonstrated aortic dissection. Normal heart and pericardium. Normal mediastinum. Normal hilar regions. Normal visualized trachea and bronchi. The lungs are well expanded. Normal pulmonary parenchyma. Normal pleura. Normal chest wall structures. 5.1 mm sclerotic focus along the posterior superior endplate of the T3 vertebrae. This may represent a bone island. There is a 2.3 cm x 2.3 cm cyst in the left lobe of the liver. CT/CTA Chest W/WO Contrast IMPRESSION: Normal CTA chest examination, without a demonstrated pulmonary embolism or arterial dissection. Electronically Signed: Mal Reynaga MD at 10:50 EST ,
[2023-04-30 09:42] LABS: Anion Gap 4 (5-15); BUN 16 mg/dL (7-18); BUN/Creat Ratio 22.3 RATIO (10-20); Calcium,Total 8.8 mg/dL (8.5-10.1); Chloride 109 mmol/L (98-107); Creatinine, Serum 0.72 mg/dL (0.55-1.02); EST Glomerular Filtration Rate 92 mL/min (>60); Est Glom Filt Rate - Afr Amer 111 mL/min (>60); Glucose 167 mg/dL (74-106); Potassium 3.7 mmol/L (3.5-5.1); Sodium Level 137 mmol/L (136-145)
[2023-04-30 10:02] LABS: Troponin-I HS 4 pg/mL (3.0-54.0)
[2023-04-30 11:44] VITALS: BP 106/53; PULSE 70; RESP 16
== END 2023-04-30 11:47 | disposition home or self-care (01) ==
PROVIDERS: Emergency Provider Emergency Medicine; PCP Family Medicine; Referring Provider Emergency Medicine; Visit Provider Emergency Medicine
DX: S16.1XXA Strain of muscle, fascia and tendon at neck level, initial encounter (principal); X58.XXXA Exposure to other specified factors, initial encounter
CPT/HCPCS: 70496; 70498; 71275; 80048; 84484; 85025; 93005; 96361; 96374; 96375; 99283; J7030; J7050; Q9967; A4216

== ENCOUNTER → 2024-02-13 | Outpatient (CLI) | payer OTHER, SELFPAY ==
--- NOTE | 2024-02-13 15:27 | US_ITS ---
STUDY: RENAL ULTRASOUND - COMPLETE REASON FOR EXAM: Female, 48 years old. FLANK PAIN UTI TECHNIQUE: Ultrasound evaluation of the kidneys was performed with real-time and static larios-scale imaging. COMPARISON: Comparison is made with prior study October 13, 2022. FINDINGS: RIGHT KIDNEY: with moderate renal atrophy. The right kidney measures 6.7 cm x 3.1 cm x 3.8 cm. There is diffuse thinning of the renal cortex. The renal cortex measures 0.7 cm. There is a 2.3 cm x 3.1 cm x 1.7 cm cyst in the superior pole. There are no right renal calculi. There is no right hydronephrosis. DISTAL RIGHT URETER: There is non-visualization of the distal right ureter. There is no demonstrated right ureterovesical junction calculus. There is a visualized right ureteral jet. LEFT KIDNEY: Normal location of the left kidney, which is normal in size. The left kidney measures 13.1 cm x 4.2 cm x 5.5 cm. There is a normal cortex of the left kidney. The renal cortex measures 1.1 cm. There is no left renal mass or cyst. There are no left renal calculi. There is no left hydronephrosis. DISTAL LEFT URETER: There is non-visualization of the distal left ureter. There is no demonstrated left ureterovesical junction calculus. There is a visualized left ureteral jet. BLADDER: The distended urinary bladder has a volume of 185 ml. There is a normal wall thickness of the distended urinary bladder. There is no demonstrated mass within the urinary bladder. There are no demonstrated bladder calculi. US/Kidney and Bladder IMPRESSION: Stable atrophy of the right kidney. Stable right renal cyst. Electronically Signed: Mal Reynaga MD at 9:08 EDT ,
== END | disposition home or self-care (01) ==
LOC: US 15:26
PROVIDERS: PCP Family Medicine; Referring Provider Urology; Visit Provider Urology
DX: N39.0 Urinary tract infection, site not specified (principal); R10.9 Unspecified abdominal pain; N13.70 Vesicoureteral-reflux, unspecified
CPT/HCPCS: 76770

== ENCOUNTER → 2024-08-21 | Outpatient (CLI) | payer OTHER, SELFPAY ==
[2024-08-21 12:42] LABS: Absolute Neutrophil Count 1.7 X10^3/uL (2.0-7.7); Basophil# 0.02 X10^3/uL; Basophil% 0.6 % (0-1); Eosinophils% 3.2 % (0-5); Hematocrit 38.4 % (37-47); Hemoglobin 12.6 g/dL (12.0-15.0); Lymphocyte % 28.7 % (19-41); Mean Corp Hgb Conc 32.8 g/dL (32-36); Mean Corpuscular Hgb 30.4 pg (27.0-32.0); Mean Corpuscular Volume 92.8 fL (81-99); Mean Platelet Vol. 11.2 fl (6.2-12.0); Monocyte# 0.37 X10^3/uL; Monocyte% 11.8 % (0-10); NRBC Flagged by Analyzer 0 % (0-5); Neutrophil # 1.74 X10^3/uL (2.7-7.7); Neutrophil % 55.4 % (47-70); Platelet Count 135 K/mm3 (150-450); RBC Distribution Width CV 12.2 % (11.6-14.6); RBC Distribution Width SD 42.2 fl (35.1-43.9); RET-HE 33.6 pg (30-35); Red Blood Count 4.14 M/mm3 (4.2-5.4); Reticulocyte Count 1.23 % (0.5-1.5); White Blood Count 3.1 K/mm3 (4.4-11.0)
[2024-08-21 14:30] LABS: ALB/GLOB Ratio 1.4 RATIO (0.9-2.4); AST(SGOT) 21 U/L (<=31); Alanine Aminotransfer ALT/SGPT 15 U/L (<=34); Albumin, Serum 4.3 g/dL (3.5-5.0); Alkaline Phosphatase 63 U/L (35-104); Anion Gap 10 (5-15); BUN 20 mg/dL (4-19); BUN/Creat Ratio 24.6 RATIO (10-20); Calcium,Total 9.6 mg/dL (7.6-11.0); Carbon Dioxide 23.8 mmol/L (21.0-32.0); Chloride 104 mmol/L (98-108); Creatinine, Serum 0.81 mg/dL (0.70-1.20); EST Glomerular Filtration Rate 89 (>60); Ferritin 69 ng/mL (22-378); Globulin 3.1 g/dL (2.2-4.2); Glucose 89 mg/dL (70-99); Iron 102 ug/dL (50-170); Iron Binding Capacity,Total 243 ug/dL (250-450); Iron Binding Capacity,Unsat 141 ug/dL (228-428); Potassium 4.8 mmol/L (3.3-5.1); Protein, Total 7.4 g/dL (5.9-8.4); Sodium Level 137 mmol/L (133-145); Thyroid Stim Hormone (TSH) 0.741 uIU/mL (0.300-4.200); Total Bilirubin 0.66 mg/dL (0.00-1.30); Vitamin B12 833 pg/mL (180-914); Vitamin D,25 Hydroxy 42.3 ng/mL (30-100)
== END | disposition home or self-care (01) ==
LOC: MFPLAB 10:11
PROVIDERS: PCP Family Medicine; Referring Provider Family Medicine; Visit Provider Family Medicine
DX: D50.9 Iron deficiency anemia, unspecified (principal); E55.9 Vitamin D deficiency, unspecified; L65.9 Nonscarring hair loss, unspecified
CPT/HCPCS: 36415; 80053; 82306; 82607; 82728; 82746; 83540; 83550; 84439; 84443; 85025; 85045

== ENCOUNTER → 2024-12-17 | Outpatient (CLI) | payer OTHER, SELFPAY | END | disposition home or self-care (01) | LOC: MFPLAB 16:33 → LABSPEC 16:34 | PROVIDERS: PCP Family Medicine; Visit Provider Family Medicine | DX: R39.89 Other symptoms and signs involving the genitourinary system (principal) | CPT/HCPCS: 87086; 87088 ==

== ENCOUNTER → 2025-01-12 | Outpatient (CLI) | payer OTHER, SELFPAY ==
[2025-01-12 19:42] LABS: AST(SGOT) 35 U/L (<=31); Alanine Aminotransfer ALT/SGPT 45 U/L (<=34); Albumin, Serum 4.4 g/dL (3.5-5.0); Alkaline Phosphatase 64 U/L (35-104); Anion Gap 10 (5-15); BUN 22 mg/dL (4-19); BUN/Creat Ratio 24.2 RATIO (10-20); Calcium,Total 9.5 mg/dL (7.6-11.0); Carbon Dioxide 24.1 mmol/L (21.0-32.0); Chloride 105 mmol/L (98-108); Globulin 2.6 g/dL (2.2-4.2); Glucose 96 mg/dL (70-99); Potassium 4.3 mmol/L (3.3-5.1)
[2025-01-12 20:32] LABS: Vitamin D,25 Hydroxy 51.6 ng/mL (30-100)
[2025-01-13 09:31] LABS: Hepatitis B Surface Antigen Nonreactive (Nonreactive); Hepatitis C Antibody Nonreactive (Nonreactive)
== END | disposition home or self-care (01) ==
LOC: MFPLAB 15:51
PROVIDERS: PCP Family Medicine; Referring Provider Family Medicine; Visit Provider Family Medicine
DX: E55.9 Vitamin D deficiency, unspecified (principal); R79.89 Other specified abnormal findings of blood chemistry
CPT/HCPCS: 36415; 80053; 82306; 86803; 87340

== ENCOUNTER 2025-01-18 16:41 | Outpatient (CLI) | payer OTHER, SELFPAY | END 2025-01-18 23:59 | disposition home or self-care (01) | LOC: MFPLAB 16:42 | PROVIDERS: PCP Family Medicine; Referring Provider Family Medicine; Visit Provider Family Medicine | DX: R79.89 Other specified abnormal findings of blood chemistry (principal) | CPT/HCPCS: 36415; 86706 ==